=== PATIENT | female | born 1945 | race Caucasian/White ===

== ENCOUNTER → 2018-07-27 | Outpatient (CLI) | payer MEDICARE, OTHER ==
[2018-07-27 11:38] LABS: Potassium 3.9 mmol/L (3.5-5.1)
== END | disposition home or self-care (01) ==
LOC: LABPAT 10:33
PROVIDERS: ATTEND Otolaryngology
DX: Z01.812 Encounter for preprocedural laboratory examination (principal); I10 Essential (primary) hypertension; E11.9 Type 2 diabetes mellitus without complications
CPT/HCPCS: 36415; 80051; 82947

== ENCOUNTER 2020-09-08 08:18 | Day surgery (SDC) | payer MEDICARE, OTHER ==
[2020-09-08 09:06] VITALS: TEMP 98
[2020-09-08 09:12] LABS: Glucose,Whole Blood 121 mg/dL (75-99)
[2020-09-08] MEDS ORDERED: LACTATED RINGERS 1,000 ML IV ONE ×2 (09:12→10:39)
[2020-09-08] MEDS ORDERED: LIDOCAINE 1% (10MG/ML) FOR IV START INTRADERMA ONE (09:13)
[2020-09-08] MEDS ORDERED: PROPOFOL 10 MG/ML 20 ML VIAL IV ONE (10:15)
--- NOTE | 2020-09-08 11:04 | P.PCN ---
Date of Procedure: 09/08/20 Procedure(s) Performed: BRIEF HISTORY: Patient is a 74-year-old pleasant white female scheduled for an elective colonoscopy as a part of screening for colorectal neoplasia. PROCEDURE PERFORMED: Colonoscopy with snare polypectomy. PREOPERATIVE DIAGNOSIS: Screening for colon cancer. IV sedation per Anesthesia. PROCEDURE: After informed consent was obtained, the patient, was brought into the endoscopy unit. IV sedation was administered by Anesthesia under continuous monitoring. Digital rectal examination was normal. Initially the Olympus CF-160 flexible video colonoscope was then inserted in the rectum, gradually advanced into the cecum without any difficulty. Careful examination was performed as the scope was gradually being withdrawn. Ileocecal valve and the appendiceal orifice were visualized and appeared normal. Prep was excellent. In the base of the cecum there were 3 polyps measuring 5 mm to 7 mm in size all of which were removed by snare polypectomy. In the transverse colon there was a 2 cm broad- based polyp, 1 cm 2 polyps removed by snare polypectomy. In the descending colon there was a 2 cm broad-based polyp removed by piecemeal snare polypectomy. There was a 1 cm descending colon polyp status post polypectomy. In the sigmoid colon there was a 1 cm polyp removed by snare polypectomy. Mucosa of the rectum appeared normal. Retroflexion was performed in the rectum and no lesions were seen. The patient tolerated the procedure well. IMPRESSION: 3 polyps in the cecum measuring between 5-7 mm in size status post polypectomy 2 cm polyp, 1 cm 2 transverse colon polyps status post polypectomy 2 cm broad-based descending colon polyp and a 1 cm polyp is post polypectomy 1 cm; sigmoid polyp status post polypectomy RECOMMENDATIONS: Findings of this examination were discussed with the patient /family. She was advised to follow with the biopsy results. If the biopsy shows an adenoma she can have a repeat colonoscopy in 3 years.
[2020-09-08 11:43] LABS: Glucose,Whole Blood 143 mg/dL (75-99)
[2020-09-08] MEDS ORDERED: hydrALAZINE HCL 20 MG/ML 1 ML VIAL ONE (11:51)
[2020-09-08] MEDS ORDERED: hydrALAZINE HCL 20 MG/ML 1 ML VIAL IVP ONE (11:55)
[2020-09-08 12:48] VITALS: PULSE 66; RESP 18
[2020-09-08 12:49] VITALS: BP 170/80
== END 2020-09-08 12:50 | disposition home or self-care (01) ==
LOC: ORWHC2ENDO 08:18
PROVIDERS: ATTEND Internal Medicine Gastroenterology
DX: Z12.11 Encounter for screening for malignant neoplasm of colon (principal); D12.0 Benign neoplasm of cecum; D12.4 Benign neoplasm of descending colon; D12.5 Benign neoplasm of sigmoid colon; D12.3 Benign neoplasm of transverse colon; E11.9 Type 2 diabetes mellitus without complications; I10 Essential (primary) hypertension; F17.200 Nicotine dependence, unspecified, uncomplicated; E07.9 Disorder of thyroid, unspecified; K21.9 Gastro-esophageal reflux disease without esophagitis; Z79.899 Other long term (current) drug therapy; Z79.51 Long term (current) use of inhaled steroids; Z97.2 Presence of dental prosthetic device (complete) (partial); Z79.890 Hormone replacement therapy; Z79.4 Long term (current) use of insulin
CPT/HCPCS: 88305; 45385; J0360; J2704